=== PATIENT | female | born 1990 | race Caucasian/White ===

== ENCOUNTER 2020-01-14 20:02 | Emergency (ER) | payer SELFPAY ==
[~2020-01-14] VITALS: Ht 175.3 cm; Wt 104.5 kg
[~2020-01-14 20:02] MED LIST: ACETTAB3 OR; ACULAR0.5 % OD; ALLERGY10 M1 PO; BACTRIM DS1 TAB PO; BENZONATATE200 MG PO; CLARITHROMYC500 MG PO; CLEOCIN150 M1 PO; CLEOCIN150 MG PO; CLEOCIN300 MG PO; CLINDAMYCIN HC150 MG PO; CLINDAMYCIN HC300 MG PO; CLINDAMYCIN150 MG PO; DARVOCET-N 100100 MG OR; DOXYCYCL HYC100 MG PO; EQ IBUPROFEN200 MG OR; FERROUS SUL2 OR; FIORICET PO; FLEXERIL PO; FLEXERIL10 MG PO; FLONASE NASAL50 MCG; FLORASTOR250 M1 PO; GENTASOL0.3 % OS; IMITREX50 M1; KEFLEX500 M1 PO; KETOROLAC TROME10 MG PO; LAMICTAL XR100 MG PO; LAMICTAL100 M1 PO; LEVAQUIN500 MG PO; LEVAQUIN750 MG PO; LEVOFLOXACIN750 MG PO; LORTAB 10-325 M1 TAB PO; LORTAB 5 OR; LORTAB 7.5 OR; LORTAB 7.5-3251 TAB; LORTAB5 OR; LORTAB5 PO; MEDDOSEPAK OR; MEDDOSEPAK PO; METOCLOPRAM10 MG OR; MOBIC7.5 M1; MUCINEX600 MG PO; NAPROSYN250 MG PO; NAPROSYN500 MG OR; NAPROSYN500 MG PO; NAPROXEN500 MG PO; NORCO1 TA1 PO; OCELLA1 TAB OR; PARAGARD IU; PREDNISONE20 MG PO; PRENATA5 OR; PRENATAL1 TA1; PRENATAL1 TAB PO; PREVACID30 M1 PO; PROAIR HFA IN; PROMETHAZINE25 MG OR; PYRIDIUM200 MG PO; REGLAN10 MG OR; REGLAN10 MG PO; ROCEPHIN 1 GM1 GM IM; SEPTRA DS1 TAB OR; SOLU-MEDROL125 MG IM; TESSALON PER100 MG PO; TOPAMAX50 M1 PO; TORADOL30 MG/VIAL IJ; TRAMADOL HCL50 MG PO; TRAZODONE50 MG PO; TYLENOL325 MG PO; ULTRAM50 M1 OR; ULTRAM50 M1 PO; ULTRAM50 MG OR; ULTRAM50 MG PO; UNKNOWN ANTIBIOTIC; VITAMIN B-121000 MC1 SL; VITAMIN B-12500 MC1 SL; VITAMIN D50000 UNT OR; XANAX0.25 MG PO; ZITHROMAX250 MG PO; ZITHROMAX500 MG PO; ZOFRAN ODT4 MG OR; ZOFRAN ODT8 MG SL; ZOFRAN4 MG/TAB PO; ZPAK PO; [UNRECOGNIZED DRUG - OTHER] OR; [UNRECOGNIZED DRUG - OTHER] OR; [UNRECOGNIZED DRUG - REMARK]; [UNRECOGNIZED DRUG - REMARK]
[2020-01-14 21:06] LABS: HEMATOCRIT 38.1 % (37.0-47.0); HEMOGLOBIN 12.3 g/dl (12.0-16.0); IMMATURE GRANULOCYTES 0.3 % (0.0-5.0); MEAN CELL VOLUME 86.4 fL CALC (80.0-100.0); MEAN CORPUSCULAR HGB 27.9 pG CALC (26.0-32.0); MEAN CORPUSCULAR HGB CONC 32.3 g/dL CAL (32.0-36.0); NEUT# 4.72 thou/uL (2.00-7.15); RED BLOOD COUNT 4.41 mill/uL (4.20-5.60)
[2020-01-14 21:23] LABS: ALBUMIN 4.2 g/dL (3.2-5.0); ALKALINE PHOSPHATASE 78 u/l (38-126); ANION GAP 10 (6-22 (CALC)); BILIRUBIN, TOTAL 0.8 mg/dL (0.0-1.4); BUN 15 mg/dL (7-17); BUN/CREATININE RATIO 22 (12-20 (CALC)); CARBON DIOXIDE 25 mmol/l (22-30); CHLORIDE 103 mmol/l (95-108); CREATININE 0.7 mg/dL (0.5-1.0); GFR > 60 ML/MIN (>=60 (CALC)); GFR FOR AFR.AMER. > 60 ML/MIN (>=60 (CALC)); POTASSIUM 3.4 mmol/l (3.5-5.1); SGOT/AST 37 u/l (14-36); SODIUM 135 mmol/l (137-146); TOTAL PROTEIN 7.4 g/dL (6.3-8.2)
[2020-01-14 21:24] LABS: HCG SERUM/URINE (NEG/POS) NEGATIVE (NEGATIVE)
[2020-01-14] MEDS ORDERED: ZITHROMAX250 MG PO (22:20)
[2020-01-14] MEDS ORDERED: TESSALON PERLE100 MG PO (22:20)
[2020-01-14] MEDS ORDERED: MEDDOSEPAK PO (22:20)
[2020-01-14 22:40] VITALS: BP 132/72
--- NOTE | 2020-01-17 13:44 | NUR ---
Patient called for Covid results. Advised patient of negative Covid test results. Patient requests a copy of results for work. Verbal authorization given by patient via telephone to place a copy of her results at the front desk host for her to picker/puller.
== END 2020-01-14 22:40 | disposition home or self-care (01) | DRG 203 ==
LOC: ED 20:02
DX: J40 Bronchitis, not specified as acute or chronic (principal); F17.210 Nicotine dependence, cigarettes, uncomplicated; R76.8 Other specified abnormal immunological findings in serum; Z20.828 Contact with and (suspected) exposure to other viral communicable diseases

== ENCOUNTER 2020-01-20 05:37 | Emergency (ER) | payer SELFPAY ==
[~2020-01-20] VITALS: Ht 175.3 cm; Wt 89.0 kg
[~2020-01-20 05:37] MED LIST changes: +TESSALON PERLE100 MG PO
[2020-01-20] MEDS ORDERED: EFFEXOR XR150 MG PO (05:56)
[2020-01-20] MEDS ORDERED: ABILIFY15 MG PO (05:56)
[2020-01-20] MEDS ORDERED: EFFEXOR XR75 MG/CAP PO (05:57)
[2020-01-20 06:20] LABS: HEMATOCRIT 39.7 % (37.0-47.0); HEMOGLOBIN 12.7 g/dl (12.0-16.0); IMMATURE GRANULOCYTES 0.9 % (0.0-5.0); MEAN CELL VOLUME 88.4 fL CALC (80.0-100.0); MEAN CORPUSCULAR HGB 28.3 pG CALC (26.0-32.0); NEUT# 10.33 thou/uL (2.00-7.15); RED BLOOD COUNT 4.49 mill/uL (4.20-5.60); RED CELL DISTRI WIDTH 13.3 % (11.5-15.5)
[2020-01-20 06:32] LABS: D-DIMER 0.27 mg/L (0.19-0.60)
[2020-01-20 06:36] LABS: ACT PARTIAL THROMBO TIME 23.8 SECONDS (20.0-32.5); INTERNATIONAL NORMALIZED RATIO 0.9 RATIO (0.7-1.3)
[2020-01-20] MEDS ORDERED: VENTOLIN HFA IN (06:59)
[2020-01-20 07:15] VITALS: BP 150/88
== END 2020-01-20 07:15 | disposition home or self-care (01) | DRG 203 ==
LOC: ED 05:37
PROVIDERS: Family Medicine
DX: J45.901 Unspecified asthma with (acute) exacerbation (principal); F17.210 Nicotine dependence, cigarettes, uncomplicated

== ENCOUNTER 2020-07-20 | Emergency (ER) | payer SELFPAY ==
[~2020-07-20] MED LIST changes: +ABILIFY15 MG PO; +EFFEXOR XR150 MG PO; +EFFEXOR XR75 MG/CAP PO; +VENTOLIN HFA IN
[2020-07-20 11:38] LABS: HEMATOCRIT 40.7 % (37.0-47.0); HEMOGLOBIN 13.1 g/dl (12.0-16.0); IMMATURE GRANULOCYTES 0.4 % (0.0-5.0); MEAN CELL VOLUME 86.4 fL CALC (80.0-100.0); MEAN CORPUSCULAR HGB 27.8 pG CALC (26.0-32.0); MEAN CORPUSCULAR HGB CONC 32.2 g/dL CAL (32.0-36.0); NEUT# 6.99 thou/uL (2.00-7.15); RED BLOOD COUNT 4.71 mill/uL (4.20-5.60); RED CELL DISTRI WIDTH 13.2 % (11.5-15.5)
[2020-07-20 11:42] LABS: ALBUMIN 4.5 g/dL (3.2-5.0); ALKALINE PHOSPHATASE 64 u/l (38-126); ANION GAP 13 (6-22 (CALC)); BUN 18 mg/dL (7-17); BUN/CREATININE RATIO 26 (12-20 (CALC)); CARBON DIOXIDE 24 mmol/l (22-30); CHLORIDE 106 mmol/l (95-108); CREATININE 0.7 mg/dL (0.5-1.0); GFR > 60 ML/MIN (>=60 (CALC)); GFR FOR AFR.AMER. > 60 ML/MIN (>=60 (CALC)); POTASSIUM 4.3 mmol/l (3.5-5.1); SGOT/AST 58 u/l (14-36); SODIUM 139 mmol/l (137-146); TOTAL PROTEIN 8.1 g/dL (6.3-8.2)
[2020-07-20 12:03] LABS: MYOGLOBIN 115 ng/mL (0 - 62)
[2020-07-20 14:17] LABS: URINE BILIRUBIN - DIPSTICK NEGATIVE (NEGATIVE); URINE BLOOD DIPSTICK NEGATIVE (NEGATIVE); URINE CLARITY CLEAR; URINE COLOR YELLOW; URINE GLUCOSE - DIPSTICK NEGATIVE (NEGATIVE); URINE KETONE 15 mg/dL (NEGATIVE); URINE LEUK ESTERASE NEGATIVE (Negative); URINE NITRITE - DIPSTICK NEGATIVE (Negative); URINE PROTEIN - DIPSTICK NEGATIVE (NEG-TRACE); URINE SPECIFIC GRAVITY 1.025; URINE UROBILINOGEN - DIPSTICK 0.2 E.U./dL (0.2)
== END 2020-07-20 15:05 | disposition home or self-care (01) | DRG 897 ==
PROVIDERS: Emergency Medicine
DX: F15.10 Other stimulant abuse, uncomplicated (principal); E86.0 Dehydration; F17.200 Nicotine dependence, unspecified, uncomplicated

== ENCOUNTER 2023-10-28 01:22 | Emergency (ER) | payer SELFPAY ==
[~2023-10-28] VITALS: Ht 175.3 cm; Wt 78.0 kg
[~2023-10-28 01:22] MED LIST changes: +CLINDAMYCIN300 M1 PO
[2023-10-28 01:32] VITALS: BP 142/88
[2023-10-28] MEDS ORDERED: DICLOFENAC SODIUM 75 MG/TAB PO ONE (01:40)
[2023-10-28] MEDS ORDERED: ACETAMINOPHEN 500 MG TAB PO ONE (01:40)
[2023-10-28 02:04] LABS: BASO% 0.8 % (0-3); EOS% 2.7 % (0-8); HEMATOCRIT 40.1 % (37.0-47.0); HEMOGLOBIN 12.8 g/dl (12.0-16.0); IMMATURE GRANULOCYTES 0.4 % (0.0-5.0); LYMPH% 46.9 % (15-41); MEAN CELL VOLUME 84.6 fL CALC (80.0-100.0); MEAN CORPUSCULAR HGB CONC 31.9 g/dL CAL (32.0-36.0); MONO% 7.5 % (2-13); NEUT# 3.72 thou/uL (2.00-7.15); NEUT% 41.7 % (42-76); RED BLOOD COUNT 4.74 mill/uL (4.20-5.60)
[2023-10-28 02:20] LABS: CREATININE 0.7 mg/dL (0.5-1.0)
[2023-10-28 02:22] LABS: BILIRUBIN, TOTAL 0.4 mg/dL (0.02-1.3); POTASSIUM 3.2 mmol/l (3.5-5.1)
[2023-10-28 03:20] LABS: URINE BLOOD DIPSTICK Negative (NEGATIVE); URINE GLUCOSE - DIPSTICK Negative (NEGATIVE); URINE KETONE Trace mg/dL (NEGATIVE); URINE LEUK ESTERASE Negative (NEGATIVE); URINE NITRITE - DIPSTICK Negative (Negative); URINE PH 5.5 (4.5-8.0); URINE PROTEIN - DIPSTICK Trace mg/dL (NEG-TRACE); URINE SPECIFIC GRAVITY >=1.030; URINE UROBILINOGEN - DIPSTICK 0.2 E.U./dL (0.2)
[2023-10-28 03:21] LABS: URINE COLOR Yellow
[2023-10-28] MEDS ORDERED: MUPIROCIN2 % EX (03:40)
[2023-10-28 04:14] VITALS: BP 142/88
== END 2023-10-28 04:14 | disposition home or self-care (01) | DRG 607 ==
LOC: ED 01:22
PROVIDERS: Family Medicine
DX: S20.96XA Insect bite (nonvenomous) of unspecified parts of thorax, initial encounter (principal); S40.862A Insect bite (nonvenomous) of left upper arm, initial encounter; S40.861A Insect bite (nonvenomous) of right upper arm, initial encounter; F19.10 Other psychoactive substance abuse, uncomplicated; M25.552 Pain in left hip; M25.551 Pain in right hip; F17.200 Nicotine dependence, unspecified, uncomplicated; W57.XXXA Bitten or stung by nonvenomous insect and other nonvenomous arthropods, initial encounter

== ENCOUNTER 2023-12-03 16:25 | Emergency (ER) | payer SELFPAY ==
[~2023-12-03] VITALS: Ht 175.3 cm; Wt 77.0 kg
[2023-12-03] VITALS (9 sets, daily range): BP systolic 90–116; BP diastolic 37–71
[~2023-12-03 16:25] MED LIST changes: +MUPIROCIN2 % EX
[2023-12-03] MEDS ORDERED: SODIUM CHLORIDE 0.9% 1,000 ML IV ONE (16:40)
[2023-12-03] MEDS ORDERED: cefTRIAXone SODIUM 2 GM in SODIUM CHLORIDE 0.9% 100 ML IV ONE (16:40)
[2023-12-03 17:14] LABS: BASO% 0.3 % (0-3); HEMATOCRIT 37.5 % (37.0-47.0); HEMOGLOBIN 12.1 g/dl (12.0-16.0); IMMATURE GRANULOCYTES 0.2 % (0.0-5.0); LYMPH% 29.2 % (15-41); MEAN CELL VOLUME 85.2 fL CALC (80.0-100.0); MEAN CORPUSCULAR HGB 27.5 pG CALC (26.0-32.0); MEAN CORPUSCULAR HGB CONC 32.3 g/dL CAL (32.0-36.0); MONO% 7.7 % (2-13); NEUT# 3.58 thou/uL (2.00-7.15); NEUT% 59.6 % (42-76); RED BLOOD COUNT 4.4 mill/uL (4.20-5.60); RED CELL DISTRI WIDTH 12.9 % (11.5-15.5)
[2023-12-03 17:18] LABS: ALBUMIN 3.9 g/dL (3.2-5.0); BILIRUBIN, TOTAL 0.8 mg/dL (0.02-1.3); CREATININE 0.6 mg/dL (0.5-1.0); POTASSIUM 3.8 mmol/l (3.5-5.1); TOTAL PROTEIN 7.2 g/dL (6.3-8.2)
[2023-12-03] MEDS ORDERED: CLINDAMYCIN HY300 MG PO (17:29)
== END 2023-12-03 18:26 | disposition home or self-care (01) | DRG 603 ==
LOC: ED 16:25
PROVIDERS: Family Medicine
DX: L03.211 Cellulitis of face (principal); F17.200 Nicotine dependence, unspecified, uncomplicated

== ENCOUNTER 2023-12-25 06:16 | Emergency (ER) | payer SELFPAY ==
[2023-12-25] VITALS (18 sets, daily range): BP systolic 110–133; BP diastolic 68–97
[~2023-12-25] VITALS: Ht 175.3 cm; Wt 64.0 kg
[~2023-12-25 06:16] MED LIST changes: +CLINDAMYCIN HY300 MG PO
[2023-12-25] MEDS ORDERED: Diph, Acellular Pertussis, Tet 0.5 ML/VIAL (Tdap) SDV IM ONE (06:40)
[2023-12-25] MEDS ORDERED: IBUPROFEN600 MG PO (10:00)
== END 2023-12-25 10:26 | disposition home or self-care (01) | DRG 556 ==
LOC: ED 06:16
DX: M25.552 Pain in left hip (principal); M54.50 Low back pain, unspecified; F19.10 Other psychoactive substance abuse, uncomplicated; S00.412A Abrasion of left ear, initial encounter; K21.9 Gastro-esophageal reflux disease without esophagitis; F17.200 Nicotine dependence, unspecified, uncomplicated; W19.XXXA Unspecified fall, initial encounter

== ENCOUNTER 2024-04-08 06:15 | Emergency (ER) | payer SELFPAY ==
[~2024-04-08 06:15] MED LIST changes: +IBUPROFEN600 MG PO
== END 2024-04-08 07:13 | disposition left against medical advice (07) | DRG 951 ==
LOC: ED 06:15 → LWOBS 07:10
DX: Z53.21 Procedure and treatment not carried out due to patient leaving prior to being seen by health care provider (principal)

== ENCOUNTER 2024-04-23 04:17 | Emergency (ER) | payer SELFPAY ==
[~2024-04-23] VITALS: Ht 175.3 cm; Wt 68.0 kg
[2024-04-23] MEDS ORDERED: KETOROLAC TROMETHAMINE 30 MG/ML SDV IM ONE (04:45)
[2024-04-23] MEDS ORDERED: CLINDAMYCIN HCL 150 MG CAP PO ONE (04:45)
[2024-04-23] MEDS ORDERED: CORTISPORIN OTI10 ML AU (04:52)
[2024-04-23] MEDS ORDERED: CLINDAMYCIN300 M1 PO (04:52)
[2024-04-23 05:52] VITALS: BP 125/83
== END 2024-04-23 06:00 | disposition home or self-care (01) | DRG 156 ==
LOC: ED 04:17
DX: H60.93 Unspecified otitis externa, bilateral (principal); K04.7 Periapical abscess without sinus; K02.9 Dental caries, unspecified; F17.200 Nicotine dependence, unspecified, uncomplicated; Z20.822 Contact with and (suspected) exposure to COVID-19